=== PATIENT | female | born 1955 | race Caucasian/White ===

== ENCOUNTER 2023-04-20 21:55 | Observation (INO) | payer MEDICARE, SELFPAY ==
[2023-04-20 21:57] VITALS: BP 113/75; PULSE 93; RESP 16; TEMP 37.2; O2SAT 100; BMI 26.9
--- NOTE | 2023-04-20 22:02 | DI.CT.S_ITS ---
PROCEDURE: CT ABDOMEN PELVIS W CON INDICATIONS: RLQ pain, elevated WBCs TECHNIQUE: After the administration of IV contrast, axial sections were acquired from the lung bases to the pubic symphysis. Coronal and sagittal reformats were performed. For radiation dose reduction, the following was used: automated exposure control, adjustment of mA and/or kV according to patient size. COMPARISON: None. FINDINGS: Image quality: Excellent. Lung bases: Unremarkable. Mild dependent atelectasis can be seen at the lung bases. Heart: No significant findings. ABDOMEN: Liver: A water density, nonenhancing liver cyst is seen posteriorly measuring 5 cm. Smaller liver cysts are seen elsewhere. Gallbladder: Unremarkable. Biliary ducts: Unremarkable. Pancreas: Unremarkable. Spleen: Unremarkable. Adrenal Glands: Unremarkable. Kidneys and Ureters: Unremarkable. Stomach and Bowel: An abnormal appendix is seen, with mild wall hyperenhancement, measuring up to 12 mm. Moderate surrounding inflammatory change can be seen. No free air is seen. No loculated abscess can be seen. Dilated loops of small bowel are seen. Colonic diverticulosis is seen, without findings of active diverticulitis. Ventral Wall: No hernia. Abdominal Nodes: No retroperitoneal or mesenteric adenopathy by size criteria. Vessels: Aorta and inferior vena cava are normal in size. PELVIS: Pelvic Organs: Prior hysterectomy. Dense calcification can be seen involving the region of the left ovary. Bladder: Unremarkable. Pelvic Nodes: No enlarged lymph nodes. Miscellaneous: No inguinal hernias are seen. Bones: Remote anterior wedge deformities can be seen involving T10 and T11, with associated Schmorl's nodes, as on series 5, image 46. Focal L5-S1 degenerative change is seen. Milder degenerative changes are seen elsewhere. IMPRESSION: Acute appendicitis, without findings of perforation or abscess. Dense calcification can be seen involving the region of the left ovary. Please correlate with known patient history. Additional findings: Remote T10 and T11 anterior wedge deformities, with associated Schmorl's nodes Simple appearing liver cysts Focal L5-S1 degenerative change Diverticulosis, without active diverticulitis Prior hysterectomy. Note: Dr. Wu was not available to discuss this case at the time of this dictation. Findings relayed to Dr. Wu via ER staff at 10:05 p.m. on April 20, 2023. Dictated by: Reji Barton M.D. on 04/20/2023 at 21:56 Approved by: Reji Barton M.D. on 04/20/2023 at 22:05
[2023-04-20 23:13] VITALS: PULSE 93; O2SAT 97
[2023-04-20 23:30] VITALS: BP 117/71; PULSE 95; RESP 18; O2SAT 97
--- NOTE | 2023-04-20 23:31 | ED.ABDPAIN ---
HPI - Abdominal Pain General Chief Complaint: Abdominal Pain Stated Complaint: CT SCAN [place] Time Seen by Provider: 04/20/23 22:02 Source: patient Mode of arrival: EMS History of Present Illness HPI narrative: 68-year-old female with history of hypertension presents in a transfer from an outside facility for evaluation right lower quadrant pain and suspicion of appendicitis. Patient has had 24 hours of gradually worsening abdominal pain which was initially mild generalized but has since settled in her right lower quadrant. She is had low-grade temperature but no true measurable fevers. She has poor appetite and is nauseated but has not had vomiting. No change in bowel habits such as diarrhea or constipation. She denies dysuria, frequency or urgency. She was eventually transferred here due to the sending facilities inability to obtain a CT scan. Related Data Home Medications Medication Instructions Recorded Confirmed bupropion HCl 150 mg 24 hr tablet, 150 mg PO QAM 04/21/23 04/21/23 extended release (Wellbutrin XL) lisinopril 10 mg tablet 10 mg PO DAILY 04/21/23 04/21/23 Allergies Allergy/AdvReac Type Severity Reaction Status Date / Time Sulfa (Sulfonamide Allergy Verified 04/20/23 23:05 Antibiotics) Review of Systems Review of Systems Narrative: GENERAL: See HPI HEENT: Denies sinus pain, ear pain, sore throat, difficulty swallowing, dizziness. RESPIRATORY: Denies dyspnea, cough, wheezing, hemoptysis, sputum. CARDIOVASCULAR: Denies chest pain, palpitations, orthopnea, edema, GASTROINTESTINAL: See HPI : Denies dysuria, frequency, incontinence, hematuria, urinary retention. MUSCULOSKELETAL: denies weakness, joint pain, or bony pain SKIN: Denies rash, skin lesions, or other NEUROLOGIC: Denies weakness, headache, numbness, change in speech, confusion, seizures, incoordination. PSYCHIATRIC: No concerning psychosocial issues. 12 point review of systems is negative except for those stated above Patient History Social History household members: none Smoking Status: Never smoker Exam Narrative Exam Narrative: GENERAL: [68] year old patient appears stated age. Well-developed patient, in mild distress. HEAD: Atraumatic. Normocephalic. EYES: Pupils equal round and reactive. Extraocular motions intact. No scleral icterus. No injection or drainage. ENT: Nose without bleeding, purulent drainage. Throat without erythema, tonsillar hypertrophy or exudate. Airway patent. NECK: Trachea midline. Non tender CARDIOVASCULAR: Regular rate and rhythm without murmurs, gallops, or rubs. RESPIRATORY: Clear to auscultation. Breath sounds equal bilaterally. No wheezes, rales, or rhonchi. GASTROINTESTINAL: Abdomen soft, tender in the right lower quadrant with localized guarding, nondistended. No rebound, negative heel tap and obturator EXTREMITIES: No edema or joint tenderness. BACK: Nontender without deformity or crepitance. No flank tenderness. NEURO: AOx3. SKIN: No rash or erythema of visible areas Initial Vital Signs Initial Vital Signs: Vital Signs Temperature 98.9 F 04/20/23 21:57 Pulse Rate 93 H 04/20/23 21:57 Respiratory Rate 16 04/20/23 21:57 Blood Pressure 113/75 04/20/23 21:57 Pulse Oximetry 100 04/20/23 21:57 Oxygen Delivery Method Room Air 04/20/23 21:57 Course Orders Ordered: ED Orders 04/20/23 22:02 CT abdomen pelvis w con Stat Hydromorphone HCl (Hydromorphone 0.5 Mg Inj) 0.5 mg IV Q2H PRN PRN Reason: Pain, Severe (7-10) Last Admin: 04/21/23 03:44 Dose: 0.5 mg Documented By: Sodium Chloride (Normal Saline 0.9%) 1,000 mls @ 125 mls/hr IV CONT [facility] Last Admin: 04/21/23 00:36 Dose: 125 mls/hr Documented By: SR Piperacillin Sod/Tazobactam (Sod 3.375 gm/ Sodium Chloride) 100 mls @ 25 mls/hr IV Q8H [facility] Last Admin: 04/21/23 03:44 Dose: 25 mls/hr Documented By: Discontinued Medications Piperacillin Sod/Tazobactam (Sod 4.5 gm/ Sodium Chloride) 100 mls @ 200 mls/hr IV NOW ONE Stop: 04/20/23 23:29 Last Infusion: 04/21/23 00:12 Dose: 0 mls/hr Documented By: Admin: 04/20/23 23:41 Dose: 200 mls/hr Documented By: MADHAVI Consultations Consultation #1: Discussed with on-call General surgery, Dr. Rodríguez, happy to accept on her service Vital Signs Vital signs: Vital Signs - 8 hr 04/20/23 23:13 04/20/23 23:30 04/20/23 23:30 Pulse Rate 93 H 95 H Respiratory Rate 18 Blood Pressure 117/71 Pulse Oximetry 97 97 MDM - Abdominal Pain MDM Narrative Medical decision making narrative: [68] year old patient presents with right lower quadrant pain and concern for appendicitis Multiple etiologies for patient's symptoms considered including, but not limited to: [Appendicitis versus other] Prior Charts reviewed in our EMR Primary Historian: patient Imaging reviewed: CT demonstrates appendicitis without evidence of perforation or abscess Patient requires hospitalization for definitive management of appendicitis. She understands and agrees with the diagnosis and plan Discharge Plan Departure Patient Disposition: Admitted as Observation Clinical Impression: Acute appendicitis Admit Date/Time: 04/20/23 23:52 Admit Provider: Peggy Rodríguez
[2023-04-20] MEDS: PIPERACILLIN/TAZO 4.5 GM in SODIUM CHLORIDE 0.9% 100 ML IV (23:41)
[2023-04-21] VITALS (14 sets, daily range): BP systolic 98–133; BP diastolic 48–71; PULSE 79–107; RESP 12–18; TEMP 36.2–37.4; O2SAT 92–98; BMI 26.9
[2023-04-21] MEDS: SODIUM CHLORIDE 0.9% 1,000 ML 125 ML IV ×2 (00:36→08:46)
[2023-04-21] MEDS: HYDROMORPHONE 0.5 MG INJ IV ×2 (03:44→11:07)
[2023-04-21] MEDS: PIPERACILLIN/TAZO 3.375 GM in SODIUM CHLORIDE 0.9% 100 ML IV ×2 (03:44→11:07)
--- NOTE | 2023-04-21 10:54 | CM.DANOTE ---
Initial DCP Assessment Note Pt is a 68 yo female, resident of [place], arrives with abd pain, sent from [facility] r/t needing a CT scan. Patient scheduled for a lap appy this morning PCP: Unknown Payer: [facility] MIKE Reviewed chart, pt discussed in multidisciplinary rounds this morning. Scheduled for lap appy, possibly home shortly thereafter if no complications Patient indp and active at [facility] No barriers identified at this time to patient's safe discharge home w/family to assist; close outpatient f/u recommended. CM team will plan to follow closely in case any DC needs or concerns arise. EDITH Epstein Discharge Planning/Care Management CM Discharge Assessment Start: 04/21/23 10:50 Freq: Status: Active Protocol: Document 04/21/23 10:50 ORAL (Rec: 04/21/23 10:54 ORAL [id number]) Discharge Planning Assessment Assigned Outpatient Scheduler EDITH Dallas DPOA/Assigned Designee Name morgan Egan Contact Information [phone] Advance Directives? No History Provided By Patient,Medical Record Prior Living Arrangements House Household Members none Type of transporation used prior to Drives own vehicle admit Independent with ADL's Yes Is patient alert and oriented? Yes Barriers to Discharge No Discharge Plan Home Transportation Arrangement Friends or family Referrals Initiated None needed
[2023-04-21] MEDS: LACTATED RINGERS 1,000 ML 150 ML IV (12:15)
--- NOTE | 2023-04-21 12:38 | P.HP_ITS ---
History of Present Illness History of Present Illness Date Patient Seen: 04/21/23 Time Patient Seen: 12:38 Chief complaint: CT SCAN [place], acute appendicitis Narrative: Ms. Kim is a 68-year-old female who presented to would be general but was sent here to [facility] because there CT scanner was down last night. She states that she started to feel ill Sunday, 3 days ago around 4:00 p.m.. She describes her original pain as ?twinges? and it did become worse in the evening on Sunday night and on started to feel more ?all over? she described it almost like there were gas pockets all over her abdomen that perhaps she would feel better if she just pooped. She did have a bowel movement but that did not help with the pain. Yesterday Sunday the pain was increasing and became constant it became more localized in the right lower quadrant and periumbilically. She denies nausea but states that she has not wanted to eat because she feels that if she did she would be nauseous. She had a low-grade fever to 99.5 has been feeling sort of subjectively feverish and malaised. She did have an episode about 4 years ago that felt similar that she attributed to diverticulitis she never had a CT scan at the time but was treated with antibi otics and got better. That was in September 25. She has had a hysterectomy about 20 years ago that was done laparoscopically and states that the morphine made her extremely nauseous. [facility] Social History household members: none Smoking Status: Never smoker Meds Home Medications and Allergies Home Medications Medication Instructions Recorded Confirmed Type bupropion HCl 150 mg 24 hr tablet, 150 mg PO QAM 04/21/23 04/21/23 History extended release (Wellbutrin XL) lisinopril 10 mg tablet 10 mg PO DAILY 04/21/23 04/21/23 History Allergies Allergy/AdvReac Type Severity Reaction Status Date / Time Sulfa (Sulfonamide Allergy Verified 04/20/23 23:05 Antibiotics) Exam Vital Signs (past 8 hours): - 04/21/23 05:40 04/21/23 08:00 04/21/23 11:02 Temperature 98.2 F 98.4 F Pulse Rate 104 H 104 H 107 H Respiratory Rate 18 17 Blood Pressure 105/58 L 98/48 L 116/70 Pulse Oximetry 95 96 Oxygen Flow Rate 0 0 Oxygen Delivery Method Room Air Oxygen Flow Rate 0 Const General: cooperative, healthy appearing, comfortable and No acute distress Nutritional Appearance: average body habitus and well nourished [facility] Head: normal to inspection Mouth: mucous membranes abnormal (Somewhat dry) Eyes General: appearance normal, both eyes and all related structures Resp Effort & Inspection: normal respiratory effort and able to speak in complete sentences Cardio Pulses: radial pulses present GI Palpation: soft and tender (Local peritoneal signs right lower quadrant) Extrem General: normal to inspection Assessment & Plan Assessment and plan (1) Acute appendicitis: Status: Acute Assessment & Plan narrative: I discussed the risks benefits and alternatives of laparoscopic possible open appendectomy. The risks discussed included but are not limited to bleeding infection formation of abscess damage to bowel colon bladder or other structures;need for further procedures or operations or hospitalizations. She understands the risks and her questions were answered. She understood the alternative option of treatment with IV antibiotics which we discussed in detail. She has chosen to proceed with appendectomy today. Quality VTE Deep Vein Thrombosis/Pulmonary Embolism Present on Admission: No
--- NOTE | 2023-04-21 13:26 | SUR.OPER ---
Supine on padded OR bed, head on pillow, left arm padded and tucked at side, Right arm on padded arm board. Legs uncrossed, safety belt at thigh, tape over blanket over lower legs .
[2023-04-21] MEDS: BUPIVACAINE 0.5% (PF) 30 ML, EPINEPHrine 0.15 MG INJ (13:34)
[2023-04-21] MEDS: HYDROMORPHONE 1 MG INJ IV ×2 (14:36→14:41)
[2023-04-21] MEDS: IBUPROFEN 600 MG TABLET PO (15:17)
[2023-04-21] MEDS: HYDROCODONE/ACET 5/325 TABLET 1 TAB PO (18:01)
[2023-04-22 01:20] VITALS: BP 110/68; PULSE 80; RESP 16; TEMP 36.1; O2SAT 94
[2023-04-22 07:00] VITALS: BP 100/58; PULSE 81; RESP 17; TEMP 36.9; O2SAT 100
[2023-04-22] MEDS: buPROPion XL 150 MG TAB PO (08:36)
[2023-04-22] MEDS: DOCUSATE 100 MG CAPSULE PO (08:37)
[2023-04-22] MEDS: HYDROCODONE/ACET 5/325 TABLET 1 TAB PO (08:37)
[2023-04-22] MEDS: IBUPROFEN 600 MG TABLET PO (08:37)
[2023-04-22 08:40] VITALS: BP 100/58; PULSE 81
--- NOTE | 2023-04-22 12:37 | PM.DS.1 ---
History of Present Illness History of Present Illness Chief complaint: CT SCAN [place], acute appendicitis Narrative: Ms. Kim is a 68-year-old female who presented to would be general but was sent here to [facility] because there CT scanner was down last night. She states that she started to feel ill Sunday, 3 days ago around 4:00 p.m.. She describes her original pain as ?twinges? and it did become worse in the evening on Sunday night and on started to feel more ?all over? she described it almost like there were gas pockets all over her abdomen that perhaps she would feel better if she just pooped. She did have a bowel movement but that did not help with the pain. Yesterday Sunday the pain was increasing and became constant it became more localized in the right lower quadrant and periumbilically. She denies nausea but states that she has not wanted to eat because she feels that if she did she would be nauseous. She had a low-grade fever to 99.5 has been feeling sort of subjectively feverish and malaised. She did have an episode about 4 years ago that felt similar that she attributed to diverticulitis she never had a CT scan at the time but was treated with antibiotics and got better. That was in September 25. She has had a hysterectomy about 20 years ago that was done laparoscopically and states that the morphine made her extremely nauseous. Discharge Providers Provider Date of admission: 04/20/23 23:52 Discharge Date: 04/22/23 Discharge provider: Peggy Rodríguez MD Summary Hospital Course Discharge Diagnosis: acute appendicitis Hospital Course: Admitted through ER. Underwent uncomplicated lap appendectomy. Did well and was discharged home in good condition on POD#1. Status at Discharge Cognitive/behavioral status at discharge: at baseline, oriented Functional status at discharge: independent ambulation Time Spent with Patient Time spent: Less than 30 minutes Exam Vital Signs (past 8 hours): - 04/22/23 08:40 04/22/23 07:00 Temperature 98.5 F Pulse Rate 81 81 Respiratory Rate 17 Blood Pressure 100/58 L 100/58 L Pulse Oximetry 100 Oxygen Flow Rate 0 Oxygen Delivery Method Nasal Cannula Oxygen Flow Rate 0 PFSH Surgical History History of laparoscopic appendectomy Social History household members: none Smoking Status: Never smoker Discharge Plan Discharge Plan Patient Disposition: Home Provider Discharge Comment: Because you had episodes of diverticulitis it is very well advised to start a fiber supplement daily. I recommend the powder form that is taken with a tall glass of water. I recommend taking this once or twice a day before meals. I also strongly recommend that you give daily fiber therapy at least a 1-2 week trial before you decide it is not working for you. This is because some of the initial symptoms of urgency or flatulence improve significantly and many patients experience huge benefits after that initial time. Your CT scan report is attached below. If you have questions about it please call the office of [facility]. [place] [id number] Scan ReportSigned Patient: Rafaela OrdonezMR#: [id number]: [id number]:[id number]/Sex: 68 / FDate of Service: 04/20/23Loc: EDAccession Number: [id number] Procedure: CT abdomen pelvis w con Ordering Provider: Edwin Wu D.O. PROCEDURE: CT ABDOMEN PELVIS W CON INDICATIONS: RLQ pain, elevated WBCs TECHNIQUE: After the administration of IV contrast, axial sections were acquired from the lung bases to the pubic symphysis. Coronal and sagittal reformats were performed. For radiation dose reduction, the following was used: automated exposure control, adjustment of mA and/or kV according to patient size. COMPARISON: None. FINDINGS: Image quality: Excellent. Lung bases: Unremarkable. Mild dependent atelectasis can be seen at the lung bases. Heart: No significant findings. ABDOMEN: Liver: A water density, nonenhancing liver cyst is seen posteriorly measuring 5 cm. Smaller liver cysts are seen elsewhere. Gallbladder: Unremarkable. Biliary ducts: Unremarkable. Pancreas: Unremarkable. Spleen: Unremarkable. Adrenal Glands: Unremarkable. Kidneys and Ureters: Unremarkable. Stomach and Bowel: An abnormal appendix is seen, with mild wall hyperenhancement, measuring up to 12 mm. Moderate surrounding inflammatory change can be seen. No free air is seen. No loculated abscess can be seen. Dilated loops of small bowel are seen. Colonic diverticulosis is seen, without findings of active diverticulitis. Ventral Wall: No hernia. Abdominal Nodes: No retroperitoneal or mesenteric adenopathy by size criteria. Vessels: Aorta and inferior vena cava are normal in size. PELVIS: Pelvic Organs: Prior hysterectomy. Dense calcification can be seen involving the region of the left ovary. Bladder: Unremarkable. Pelvic Nodes: No enlarged lymph nodes. Miscellaneous: No inguinal hernias are seen. Bones: Remote anterior wedge deformities can be seen involving T10 and T11, with associated Schmorl's nodes, as on series 5, image 46. Focal L5-S1 degenerative change is seen. Milder degenerative changes are seen elsewhere. IMPRESSION: Acute appendicitis, without findings of perforation or abscess. Dense calcification can be seen involving the region of the left ovary. Please correlate with known patient history. Additional findings: Remote T10 and T11 anterior wedge deformities, with associated Schmorl's nodes Simple appearing liver cysts Focal L5-S1 degenerative change Diverticulosis, without active diverticulitis Prior hysterectomy. Note: Dr. Wu was not available to discuss this case at the time of this dictation. Findings relayed to Dr. Wu via ER staff at 10:05 p.m. on April 20, 2023. Dictated by: Reji Barton M.D. on 04/20/2023 at 21:56 Approved by: Reji Barton M.D. on 04/20/2023 at 22:05 Discharge orders & Medications Prescriptions: New docusate sodium 100 mg Capsule 100 mg PO BID Qty: 60 0RF Rx Instructions: Take while taking [place] for pain to prevent constipation. If you become constipated even though you are taking this please take anything [id number] that works for you for constipation or call the office of [facility] for advice. If you have not had a bowel movement for 3 or more days please call the office. ibuprofen 600 mg Tablet 600 mg PO Q6H Qty: 30 0RF Continued lisinopril 10 mg Tablet 10 mg PO DAILY bupropion HCl [Wellbutrin XL] 150 mg Tablet Extended Release 24 Hr 150 mg PO QAM Follow up/Referrals: Peggy Rodríguez MD [Physician] - (7-10 day follow-up. If you are doing well you can call and let me know how you are doing and set up a telephone conference. Please call any time if you are experiencing any questions concerns or other symptoms you would like to discuss with me) Diet/Activity/Treatments Diet: Diet as Tolerated and Regular Activity: No lifting greater than 30 lb for 4 weeks after surgery. Do not do any strenuous activity. Normal activity such as walking outside and climbing stairs, is ok. If you notice pain, stop. You may drive when you no longer are taking Narcotic pain medication. Skin/Wound/Dressing Care Other wound treatment: Ok to shower, let water run over it, don't scrub. No ointments. Pat dry afterwards. No tub baths, and don't soak underwater, for 2 weeks. There are Steristrips covering the wound but also stitches under the skin which will dissolve. Visit Report/Discharge Packet Instructions: DI for an Appendectomy, [facility]: Wound Care Stand Alone Forms: Patient Portal/API, Stroke Signs & Symptoms, Surgery Discharge Discharge Data Attending Provider: Peggy Rodríguez Admit Date/Time: 04/20/23 23:52 Discharges patient from system. Discharge Date/Time: 04/22/23 13:45 Quality VTE Deep Vein Thrombosis/Pulmonary Embolism Present on Admission: No
--- NOTE | 2023-04-22 13:49 | PC.NURSE ---
IV removed. Discussed s/s of stroke, s/s of infection, follow up, activity, diet and medications. No further questions. RN escorted patient to private vehicle accompanied by daughter.
--- NOTE | 2023-05-21 09:39 | PM.OP.1 ---
Operative Date/Time/Diagnoses Date of procedure: 05/20/23 Pre-op diagnosis: Acute appendicitis Post-op diagnosis: same Procedure & Clinicians Procedure: laparoscopic appendectomy Same procedure as scheduled: Yes Indications: acute appendicitis Surgeon: Peggy Rodríguez Click Yes if Unassisted: Yes Anesthesia Type: General Operative Notes Findings: see photo. inflamed enlarged appendix Specimen(s): other (appendix) Procedure in detail: Patient was taken to the operating room and placed supine on the operating table. Preoperative antibiotics were administered and a time out was preformed. Bilateral SCDs were on and running. General endotracheal anesthesia was induced. The left arm was tucked and the abdomen prepped and draped in the usual sterile fashion. Local anesthetic was infused below the umbilicus. An #11 blade scalpel was used to incised the skin and electrocautery used to carry the incision through the subcutaneous layers. The anterior abdominal wall was doubley grasped and elevated with two Elmer clamps. The fascia was incised with the #11 blade and the abdomen was entered under direct visualization. Location confirmed with a finger sweep. Two 0 vicryl stay sutures were placed through the fascia and the Gallagher trochar was inserted. The abdomen was inflated to 15 mmHg and patient tolerated this well. The 30 degree 5 mm laparoscopic camera was inserted. The abdomen was inspected. There was no sign of entry injury. There was inflammation in the RLQ. Photographs were obtained. Two 5 mm accessory trocars were placed after infusion of local anesthetic under direct visualization in the usual LLQ and suprapubic locations. The base of the appendix was dissected creating a window. The laparoscopic stapler was inserted through the umbilical site and the camera moved to the LLQ. A blue load was used to come across the appendiceal base. The mesentery was then divided with a white staple load. The specimen was placed into an endocatch bag and removed through the umbilicus. The staple lines were inspected and intact and hemostatic. There was fluid in the pelvis which was suctioned. The abdomen was desufflated. The umbilical fascia was closed using the stay sutures. The skin was closed with running 4-0 Monocryl and Steri strips. EBL was minimal, there were no complications. Patient tolerated the procedure well and went in good condition to the post operative care unit. Complications: none Post-operative Condition: stable Disposition: PACU
== END 2023-04-22 13:45 | disposition home or self-care (01) ==
LOC: ED 23:41 → AC 04-21 10:55
PROVIDERS: Admitting Provider Surgery; Emergency Provider Emergency Medicine; Referring Provider Emergency Medicine; Visit Provider Surgery
PROC: 0DTJ4ZZ Resection of Appendix, Percutaneous Endoscopic Approach (ICD-10-PCS; CPT 44970; principal; 2023-04-21 16:00)
DX: K35.80 Unspecified acute appendicitis (principal)
CPT/HCPCS: 44970; 74177; 96365; 96366; 96375; 96376; 99222; 99284; G0378; J0171; J0330; J1100; J1170; J2405; J2543; J2704; J3010; J3490; Q9967